=== PATIENT | male | born 2000 | race African-American/Black ===

== ENCOUNTER 2021-09-02 19:53 | Emergency (ER) | payer OTHER ==
[~2021-09-02] VITALS: Ht 172.7 cm; Wt 75.0 kg
[2021-09-02 21:09] VITALS: BP 126/77
== END 2021-09-02 21:09 ==
LOC: ER 19:53
DX: R07.89 Other chest pain (principal); R06.02 Shortness of breath; R94.31 Abnormal electrocardiogram [ECG] [EKG]
CPT/HCPCS: 93005; 99283